=== PATIENT | male | born 1995 | race Caucasian/White ===

== ENCOUNTER 2021-02-18 04:42 | Emergency (ER) | payer BC, MEDICAID ==
[2021-02-18] MEDS ORDERED: Sodium Chloride 0.9% 10 ML Syringe FLUSH PRN (05:14)
--- NOTE | 2021-02-18 05:14 | EDM.PDOC ---
ED HPI GENERAL MEDICAL PROBLEM - General Stated Complaint: STOMACH PAIN Time Seen by Provider: 02/18/21 05:20 Source of Information: Reports: Patient History Limitations: Reports: No Limitations - History of Present Illness INITIAL COMMENTS - FREE TEXT/NARRATIVE: Patient is a 26 YO M who was diagnosed with DM type 2 1.5 months ago who presented to the ED because of abdominal pain, nausea, vomiting which started 2 days ago. The pain is over the epigastric area,LUQ and periumbilical area, intermittent, burning,7/10. . He also c/o polyuria and weakness. There is no fever, chills, cough and cold symptoms. - Related Data Allergies Allergy/AdvReac Type Severity Reaction Status Date / Time No Known Allergies Allergy Verified 02/18/21 06:23 Home Meds: Home Meds Aspirin [Adult Low Dose Aspirin EC] 81 mg PO DAILY 02/18/21 [History] Liraglutide [Victoza 3-Ammon] 18 mg .XX BID 02/18/21 [History] atorvaSTATin [Lipitor] 10 mg PO DAILY 02/18/21 [History] lisinopriL [Lisinopril] 10 mg PO DAILY 02/18/21 [History] Past Medical History - Past Health History Medical/Surgical History: Denies Medical/Surgical History ED ROS GENERAL - Review of Systems Review Of Systems: See Below Constitutional: Reports: Weakness HEENT: Reports: No Symptoms Respiratory: Reports: No Symptoms Cardiovascular: Reports: No Symptoms Endocrine: Reports: No Symptoms GI/Abdominal: Reports: Abdominal Pain, Nausea, Vomiting : Reports: Frequency Musculoskeletal: Reports: No Symptoms Skin: Reports: No Symptoms Neurological: Reports: No Symptoms Psychiatric: Reports: No Symptoms Hematologic/Lymphatic: Reports: No Symptoms Immunologic: Reports: No Symptoms ED EXAM, GI/ABD - Physical Exam Exam: See Below Exam Limited By: No Limitations General Appearance: Alert, No Apparent Distress Ears: Normal External Exam, Normal Canal Nose: Normal Inspection, Normal Mucosa, No Blood Throat/Mouth: Normal Inspection, Normal Lips Head: Atraumatic, Normocephalic Neck: Normal Inspection, Supple, Non-Tender, Full Range of Motion Respiratory/Chest: No Respiratory Distress, Lungs Clear, Normal Breath Sounds, No Accessory Muscle Use, Chest Non-Tender Cardiovascular: Normal Peripheral Pulses, Regular Rate, Rhythm, No Edema, No Gallop, No JVD, No Murmur, No Rub GI/Abdominal Exam: Normal Bowel Sounds, Soft, Other (epigastric tenderness) Back Exam: Normal Inspection, Full Range of Motion Extremities: Normal Inspection, Normal Range of Motion, Non-Tender, No Pedal Edema, Normal Capillary Refill Neurological: Alert, Oriented, CN II-XII Intact, Normal Cognition, Normal Gait Psychiatric: Normal Affect Skin Exam: Warm Course - Vital Signs Text/Narrative:: Labs/EKG/CXR/Abd-pelvis CT result was reviewed and discussed with patient NS 1 L bolus Zofran 4 mg IV x2 Morphine 2 mg IV x1 GI cocktail po x1 Klor con 20 meq, 2 PO x1 Protonix 40 mg po x1 Humalog 20 U SC x1 Case discussed with Dr Castañeda of [facility] Last Recorded V/S: Last Vital Signs Temp 37.0 C 02/18/21 05:18 Pulse 105 H 02/18/21 05:18 Resp 18 02/18/21 05:18 BP 161/105 H 02/18/21 05:18 Pulse Ox 99 02/18/21 05:18 - Orders/Labs/Meds Orders: Active Orders 24 hr Category Date Time Status EKG Documentation Completion [RC] ASDIRECTED Care 02/18/21 05:16 Active Abdomen Pelvis w Cont [CT] Stat Exams 02/18/21 05:24 Taken Chest 1V Frontal [CR] Stat Exams 02/18/21 05:17 Taken BETA-HYDROXYBUTYRATE Stat Lab 02/18/21 05:38 Received Dextrose 50% in Water Med 02/18/21 05:20 Active 50 ml IVPUSH ASDIRECTED PRN Glucagon,Human Recombinant [GlucaGen] Med 02/18/21 05:20 Active 1 mg IM ASDIRECTED PRN Sodium Chloride 0.9% [Normal Saline] 1,000 ml Med 02/18/21 05:30 Active IV ASDIRECTED Sodium Chloride 0.9% [Saline Flush] Med 02/18/21 05:14 Active 10 ml FLUSH ASDIRECTED PRN Saline Lock Insert [OM.PC] Routine Oth 02/18/21 05:14 Ordered EKG 12 Lead [EK] Routine Ther 02/18/21 05:14 Ordered Medication Orders Dextrose/Water (50% Dextrose In Water 50 Ml Syringe) 50 ml IVPUSH ASDIRECTED PRN PRN Reason: Hypoglycemia Glucagon (Glucagon,Human Recombinant 1 Mg Vial) 1 mg IM ASDIRECTED PRN PRN Reason: Hypoglycemia Sodium Chloride (Normal Saline) 1,000 mls @ 999 mls/hr IV ASDIRECTED YESENIA Last Admin: 02/18/21 05:28 Dose: 999 mls/hr Documented by: XAVIER Sodium Chloride (Sodium Chloride 0.9% 10 Ml Syringe) 10 ml FLUSH ASDIRECTED PRN PRN Reason: Keep Vein Open Last Admin: 02/18/21 05:08 Dose: 10 ml Documented by: XAVIER Labs: Laboratory Tests 02/18/21 02/18/21 02/18/21 Range/Units 04:55 05:38 05:38 WBC 7.4 (3.2-10.1) x10-3/uL RBC 5.33 (3.90-5.90) x10(6)uL Hgb 15.6 (12.9-17.7) g/dL Hct 47.0 (38.3-50.1) % MCV 88.1 (80.8-98.7) fL MCH 29.3 (27.0-33.3) pg MCHC 33.3 (28.7-35.3) g/dL RDW 15.0 (12.4-15.0) % Plt Count 136 (117-477) x10(3)uL MPV 10.9 (6.7-11.0) fL Neut % (Auto) 64.1 (40.3-71.8) % Lymph % (Auto) 22.8 (15.8-45.3) % [place] % (Auto) 11.2 (5.5-15.2) % Eos % (Auto) 1.2 (0.1-6.8) % Baso % (Auto) 0.7 (0.3-3.8) % Neut # (Auto) 4.7 (1.7-6.9) x10-3/uL Lymph # (Auto) 1.7 (0.5-4.5) x10-3/uL [place] # (Auto) 0.8 (0.0-1.2) x10-3/uL Eos # (Auto) 0.1 (0.0-0.6) x10-3/uL Baso # (Auto) 0.1 (0.0-0.3) x10-3/uL POC VBG pH (7.32-7.43) pH Units POC VBG pCO2 (41-51) mmHg POC VBG HCO3 (21-29) mmol/L VBG Base Excess (-2-3) mmol/L O2 Delivery Device Sodium 132 L (135-145) mmol/L Potassium 3.4 L (3.5-5.3) mmol/L Chloride 96 L (100-110) mmol/L Carbon Dioxide 10 L* (21-32) mmol/L BUN 8 (7-18) mg/dL Creatinine 0.9 (0.70-1.30) mg/dL Est Cr Clr Drug Dosing 133.63 mL/min Estimated GFR (MDRD) > 60 (>60) BUN/Creatinine Ratio 8.9 L (9-20) Glucose 483 H* (80-116) mg/dL Lactic Acid (0.4-2.0) mmol/L Calcium 8.9 (8.6-10.2) mg/dL Total Bilirubin 0.8 (0.1-1.3) mg/dL AST < 5 L (5-25) IU/L ALT < 6 L (12-36) U/L Alkaline Phosphatase 138 H (56-112) IU/L Troponin I (4.0-60.3) pg/mL Total Protein 7.8 (6.0-8.0) g/dL Albumin 3.6 (3.5-5.2) g/dL Globulin 4.2 g/dL Albumin/Globulin Ratio 0.9 Amylase 13 L (25-115) U/L Lipase (73-393) U/L Urine Color Yellow (YELLOW) Urine Appearance Clear (CLEAR) Urine pH 5.0 (5.0-6.5) Ur Specific [place] 1.015 (1.010-1.025) Urine Protein Trace (NEGATIVE) mg/dL Urine Glucose (UA) >1000 H (NORMAL) mg/dL Urine Ketones 50 H (NEGATIVE) mg/dL Urine Occult Blood Moderate H (NEGATIVE) Urine Nitrite Negative (NEGATIVE) Urine Bilirubin Negative (NEGATIVE) Urine Urobilinogen Normal (NEGATIVE) mg/dL Ur Leukocyte Esterase Negative (NEGATIVE) Urine RBC 0-5 (0-5) Urine WBC 0-5 (0-5) Ur Squamous Epith Cells Occasional (NS,R,O) Urine Bacteria Few H (NS) Urine Mucus Few H (NS) Urine Opiates Screen (NEGATIVE) Ur Oxycodone Screen (NEGATIVE) Ur Propoxyphene Screen (NEGATIVE) Ur Barbituates Screen (NEGATIVE) Ur Tricyclics Screen (NEGATIVE) Ur Phencyclidine Scrn (NEGATIVE) Ur Amphetamine Screen (NEGATIVE) Urine MDMA Screen (NEGATIVE) U Benzodiazepines Scrn (NEGATIVE) U Cocaine Metab Screen (NEGATIVE) U Marijuana (THC) Screen (NEGATIVE) SARS-CoV-2 RNA (ANNA) (NEGATIVE) 02/18/21 02/18/21 02/18/21 Range/Units 05:38 05:38 05:44 WBC (3.2-10.1) x10-3/uL RBC (3.90-5.90) x10(6)uL Hgb (12.9-17.7) g/dL Hct (38.3-50.1) % MCV (80.8-98.7) fL MCH (27.0-33.3) pg MCHC (28.7-35.3) g/dL RDW (12.4-15.0) % Plt Count (117-477) x10(3)uL MPV (6.7-11.0) fL Neut % (Auto) (40.3-71.8) % Lymph % (Auto) (15.8-45.3) % [place] % (Auto) (5.5-15.2) % Eos % (Auto) (0.1-6.8) % Baso % (Auto) (0.3-3.8) % Neut # (Auto) (1.7-6.9) x10-3/uL Lymph # (Auto) (0.5-4.5) x10-3/uL [place] # (Auto) (0.0-1.2) x10-3/uL Eos # (Auto) (0.0-0.6) x10-3/uL Baso # (Auto) (0.0-0.3) x10-3/uL POC VBG pH (7.32-7.43) pH Units POC VBG pCO2 (41-51) mmHg POC VBG HCO3 (21-29) mmol/L VBG Base Excess (-2-3) mmol/L O2 Delivery Device Sodium (135-145) mmol/L Potassium (3.5-5.3) mmol/L Chloride (100-110) mmol/L Carbon Dioxide (21-32) mmol/L BUN (7-18) mg/dL Creatinine (0.70-1.30) mg/dL Est Cr Clr Drug Dosing mL/min Estimated GFR (MDRD) (>60) BUN/Creatinine Ratio (9-20) Glucose (80-116) mg/dL Lactic Acid < 0.3 L (0.4-2.0) mmol/L Calcium (8.6-10.2) mg/dL Total Bilirubin (0.1-1.3) mg/dL AST (5-25) IU/L ALT (12-36) U/L Alkaline Phosphatase (56-112) IU/L Troponin I 31.8 (4.0-60.3) pg/mL Total Protein (6.0-8.0) g/dL Albumin (3.5-5.2) g/dL Globulin g/dL Albumin/Globulin Ratio Amylase (25-115) U/L Lipase 139 (73-393) U/L Urine Color (YELLOW) Urine Appearance (CLEAR) Urine pH (5.0-6.5) Ur Specific [place] (1.010-1.025) Urine Protein (NEGATIVE) mg/dL Urine Glucose (UA) (NORMAL) mg/dL Urine Ketones (NEGATIVE) mg/dL Urine Occult Blood (NEGATIVE) Urine Nitrite (NEGATIVE) Urine Bilirubin (NEGATIVE) Urine Urobilinogen (NEGATIVE) mg/dL Ur Leukocyte Esterase (NEGATIVE) Urine RBC (0-5) Urine WBC (0-5) Ur Squamous Epith Cells (NS,R,O) Urine Bacteria (NS) Urine Mucus (NS) Urine Opiates Screen Negative (NEGATIVE) Ur Oxycodone Screen Negative (NEGATIVE) Ur Propoxyphene Screen Negative (NEGATIVE) Ur Barbituates Screen Negative (NEGATIVE) Ur Tricyclics Screen Negative (NEGATIVE) Ur Phencyclidine Scrn Negative (NEGATIVE) Ur Amphetamine Screen Negative (NEGATIVE) Urine MDMA Screen Negative (NEGATIVE) U Benzodiazepines Scrn Negative (NEGATIVE) U Cocaine Metab Screen Negative (NEGATIVE) U Marijuana (THC) Screen Negative (NEGATIVE) SARS-CoV-2 RNA (ANNA) (NEGATIVE) 02/18/21 02/18/21 Range/Units 05:50 06:22 WBC (3.2-10.1) x10-3/uL RBC (3.90-5.90) x10(6)uL Hgb (12.9-17.7) g/dL Hct (38.3-50.1) % MCV (80.8-98.7) fL MCH (27.0-33.3) pg MCHC (28.7-35.3) g/dL RDW (12.4-15.0) % Plt Count (117-477) x10(3)uL MPV (6.7-11.0) fL Neut % (Auto) (40.3-71.8) % Lymph % (Auto) (15.8-45.3) % [place] % (Auto) (5.5-15.2) % Eos % (Auto) (0.1-6.8) % Baso % (Auto) (0.3-3.8) % Neut # (Auto) (1.7-6.9) x10-3/uL Lymph # (Auto) (0.5-4.5) x10-3/uL [place] # (Auto) (0.0-1.2) x10-3/uL Eos # (Auto) (0.0-0.6) x10-3/uL Baso # (Auto) (0.0-0.3) x10-3/uL POC VBG pH 7.24 L* (7.32-7.43) pH Units POC VBG pCO2 31 L (41-51) mmHg POC VBG HCO3 13 L (21-29) mmol/L VBG Base Excess -15 L (-2-3) mmol/L O2 Delivery Device Room air Sodium (135-145) mmol/L Potassium (3.5-5.3) mmol/L Chloride (100-110) mmol/L Carbon Dioxide (21-32) mmol/L BUN (7-18) mg/dL Creatinine (0.70-1.30) mg/dL Est Cr Clr Drug Dosing mL/min Estimated GFR (MDRD) (>60) BUN/Creatinine Ratio (9-20) Glucose (80-116) mg/dL Lactic Acid (0.4-2.0) mmol/L Calcium (8.6-10.2) mg/dL Total Bilirubin (0.1-1.3) mg/dL AST (5-25) IU/L ALT (12-36) U/L Alkaline Phosphatase (56-112) IU/L Troponin I (4.0-60.3) pg/mL Total Protein (6.0-8.0) g/dL Albumin (3.5-5.2) g/dL Globulin g/dL Albumin/Globulin Ratio Amylase (25-115) U/L Lipase (73-393) U/L Urine Color (YELLOW) Urine Appearance (CLEAR) Urine pH (5.0-6.5) Ur Specific [place] (1.010-1.025) Urine Protein (NEGATIVE) mg/dL Urine Glucose (UA) (NORMAL) mg/dL Urine Ketones (NEGATIVE) mg/dL Urine Occult Blood (NEGATIVE) Urine Nitrite (NEGATIVE) Urine Bilirubin (NEGATIVE) Urine Urobilinogen (NEGATIVE) mg/dL Ur Leukocyte Esterase (NEGATIVE) Urine RBC (0-5) Urine WBC (0-5) Ur Squamous Epith Cells (NS,R,O) Urine Bacteria (NS) Urine Mucus (NS) Urine Opiates Screen (NEGATIVE) Ur Oxycodone Screen (NEGATIVE) Ur Propoxyphene Screen (NEGATIVE) Ur Barbituates Screen (NEGATIVE) Ur Tricyclics Screen (NEGATIVE) Ur Phencyclidine Scrn (NEGATIVE) Ur Amphetamine Screen (NEGATIVE) Urine MDMA Screen (NEGATIVE) U Benzodiazepines Scrn (NEGATIVE) U Cocaine Metab Screen (NEGATIVE) U Marijuana (THC) Screen (NEGATIVE) SARS-CoV-2 RNA (ANNA) Negative (NEGATIVE) Meds: Medications Generic Name Dose Route Start Last Admin Trade Name Freq PRN Reason Stop Dose Admin Dextrose/Water 50 ml 02/18/21 05:20 50% Dextrose In Water 50 Ml Syringe IVPUSH ASDIRECTED PRN Hypoglycemia Glucagon 1 mg 02/18/21 05:20 Glucagon,Human Recombinant 1 Mg Vial IM ASDIRECTED PRN Hypoglycemia Sodium Chloride 1,000 mls @ 999 mls/hr 02/18/21 05:30 02/18/21 05:28 Normal Saline IV 999 mls/hr ASDIRECTED YESENIA Administration Sodium Chloride 10 ml 02/18/21 05:14 02/18/21 05:08 Sodium Chloride 0.9% 10 Ml Syringe FLUSH 10 ml ASDIRECTED PRN Administration Keep Vein Open Discontinued Medications Generic Name Dose Route Start Last Admin Trade Name Freq PRN Reason Stop Dose Admin Al Hydroxide/Mg Hydroxide 15 0 ml 02/18/21 06:09 02/18/21 06:20 ml/ Lidocaine HCl 15 ml PO 02/18/21 06:10 30 ml NOW STA Administration Insulin Human Lispro 20 unit 02/18/21 05:20 02/18/21 05:37 Insulin Lispro 100 Unit/Ml 3 Ml Kwikpen SUBCUT 02/18/21 05:21 20 units NOW STA Administration Iopamidol 100 ml 02/18/21 05:37 02/18/21 06:00 Iopamidol 755 Mg/Ml 100 Ml Bottle IV 02/18/21 05:38 100 ml . DIRECTED ONE Administration Morphine Sulfate 2 mg 02/18/21 05:20 02/18/21 05:38 Morphine 2 Mg/Ml Syringe IVPUSH 02/18/21 05:21 2 mg NOW STA Administration Ondansetron HCl 4 mg 02/18/21 05:20 02/18/21 05:38 Ondansetron 4 Mg/2 Ml Sdv IVPUSH 02/18/21 05:21 4 mg NOW STA Administration Ondansetron HCl 4 mg 02/18/21 06:09 02/18/21 06:20 Ondansetron 4 Mg/2 Ml Sdv IVPUSH 02/18/21 06:10 4 mg NOW STA Administration Pantoprazole Sodium 40 mg 02/18/21 06:10 02/18/21 06:20 Pantoprazole 40 Mg Vial IVPUSH 02/18/21 06:11 40 mg NOW STA Administration Potassium Chloride 40 meq 02/18/21 06:15 02/18/21 06:22 Potassium Chloride 20 Meq Tab.Er PO 02/18/21 06:16 40 meq NOW STA Administration Departure - Departure Time of Disposition: 06:45 Disposition: DC/Tfer to Acute Hospital 02 Condition: Good Clinical Impression: Hyperglycemia, DKA (diabetic ketoacidoses), Hypokalemia, Dehydration - Discharge Information Referrals: Francsico Gaxiola NP [Primary Care Provider] - Sepsis Event Note (ED) - Focused Exam Vital Signs: Vital Signs Temp Pulse Resp BP Pulse Ox 02/18/21 05:18 37.0 C 105 H 18 161/105 H 99 - My Orders Last 24 Hours: My Active Orders 02/18/21 05:14 Sodium Chloride 0.9% [Saline Flush] 10 ml FLUSH ASDIRECTED PRN Saline Lock Insert [OM.PC] Routine EKG 12 Lead [EK] Routine 02/18/21 05:16 EKG Documentation Completion [RC] ASDIRECTED 02/18/21 05:17 Chest 1V Frontal [CR] Stat 02/18/21 05:20 Dextrose 50% in Water 50 ml IVPUSH ASDIRECTED PRN Glucagon,Human Recombinant [GlucaGen] 1 mg IM ASDIRECTED PRN 02/18/21 05:24 Abdomen Pelvis w Cont [CT] Stat 02/18/21 05:30 Sodium Chloride 0.9% [Normal Saline] 1,000 ml IV ASDIRECTED 02/18/21 05:38 BETA-HYDROXYBUTYRATE Stat - Assessment/Plan Last 24 Hours: My Active Orders 02/18/21 05:14 Sodium Chloride 0.9% [Saline Flush] 10 ml FLUSH ASDIRECTED PRN Saline Lock Insert [OM.PC] Routine EKG 12 Lead [EK] Routine 02/18/21 05:16 EKG Documentation Completion [RC] ASDIRECTED 02/18/21 05:17 Chest 1V Frontal [CR] Stat 02/18/21 05:20 Dextrose 50% in Water 50 ml IVPUSH ASDIRECTED PRN Glucagon,Human Recombinant [GlucaGen] 1 mg IM ASDIRECTED PRN 02/18/21 05:24 Abdomen Pelvis w Cont [CT] Stat 02/18/21 05:30 Sodium Chloride 0.9% [Normal Saline] 1,000 ml IV ASDIRECTED 02/18/21 05:38 BETA-HYDROXYBUTYRATE Stat
[2021-02-18] MEDS ORDERED: Insulin Lispro 100 Unit/ML 3 ML KwikPen SUBCUT STA (05:20)
[2021-02-18] MEDS ORDERED: Morphine 2 MG/ML SYRINGE IVPUSH STA (05:20)
[2021-02-18] MEDS ORDERED: 50% Dextrose in Water 50 ML Syringe IVPUSH PRN (05:20)
[2021-02-18] MEDS ORDERED: Ondansetron 4 MG/2 ML SDV IVPUSH STA ×2 (05:20→06:09)
[2021-02-18] MEDS ORDERED: Glucagon,Human Recombinant 1 MG Vial IM PRN (05:20)
[2021-02-18] MEDS: Sodium Chloride 0.9% 1,000 ML IV SCH ×2 (05:28→07:15)
[2021-02-18] MEDS ORDERED: Insulin Lispro 100 Unit/ML 3 ML KwikPen SUBCUT ONE (05:35)
[2021-02-18] MEDS ORDERED: Iopamidol 755 Mg/ML 100 ML Bottle IV ONE (05:37)
[2021-02-18] MEDS ORDERED: Alum Hydroxide/Mag Hydroxide 15 ML, Lidocaine 2% 15 ML PO STA ×2 (06:09)
[2021-02-18] MEDS ORDERED: Pantoprazole 40 MG Vial IVPUSH STA (06:10)
[2021-02-18] MEDS ORDERED: Potassium Chloride 20 MEQ Tab.ER PO STA (06:15)
[2021-02-18 06:31] LABS: BASE EXCESS VENOUS,POC -15 mmol/L (-2-3); HCO3 VENOUS,POC 13 mmol/L (21-29); PCO2 VENOUS,POC 31 mmHg (41-51); PH VENOUS,POC 7.24 pH Units (7.32-7.43)
[2021-02-18 07:19] VITALS: BP 151/90; PULSE 89
--- NOTE | 2021-02-20 12:08 | CR ---
INDICATION: Cough. CHEST ONE VIEW: An AP portable upright view of the chest was obtained 02/18/21 and revealed the heart, mediastinum and bony thorax to be unremarkable. The lung detail is less than ideal showing no definite active infiltrate or effusion. When clinically possible, full inspiration PA and lateral views of the chest may be helpful for further evaluation. There appears to be exogenous obesity. IMPRESSION: No definite acute process. Patient may benefit from full inspiration PA and lateral views of the chest for further evaluation. MTDD
--- NOTE | 2021-02-21 13:33 | PCM.EKG ---
#1 Interpretation EKG Date: 02/18/21 Time: 05:20 Rhythm: NSR [place]: Normal P-Wave: Present QRS: Normal ST-T: Depressed Comparison: NA - No Prior EKG (NSR T wave inversion 111,aVf)
== END 2021-02-18 07:45 ==
LOC: FB.ED 04:42
DX: E86.0 Dehydration (principal); E87.6 Hypokalemia; E11.10 Type 2 diabetes mellitus with ketoacidosis without coma; E11.65 Type 2 diabetes mellitus with hyperglycemia; Z79.82 Long term (current) use of aspirin; Z79.899 Other long term (current) drug therapy; Z20.822 Contact with and (suspected) exposure to COVID-19
CPT/HCPCS: 36415; 71045; 74177; 80053; 80305-QW; 81001; 82010; 82150; 82962; 83605; 83690; 84484; 85025; 93005; 96374; 96375; 96376; 99285; 99285-25; A9270-GY; C9113; J1815; J2270; J2405; J7030; Q9967; U0002

== ENCOUNTER 2021-09-23 23:56 | Emergency (ER) | payer SELFPAY ==
--- NOTE | 2021-09-24 00:15 | EDM.PDOC ---
ED HPI GENERAL MEDICAL PROBLEM - General Chief Complaint: Respiratory Problem Stated Complaint: LAUREANO MONTIEL'S Time Seen by Provider: 09/24/21 00:00 Source of Information: Reports: Patient, Old Records, RN History Limitations: Reports: No Limitations - History of Present Illness INITIAL COMMENTS - FREE TEXT/NARRATIVE: 26 yo male was dx at his work with Laureano this past Sat after onset of sx's on Saturday. He has not been to work or to any doctors since his dx. He has been doing a lot of sleeping lately. Tonight he feels SOB so came to the ER. He has a pHx of DKA and is prescribed Victoza. He stopped the Victoza on his own because he didn't think he needed it anymore. He has not checked his BS lately. Says he's eating a lot differently now in an attempt to control his BS. The SOB he is not experiencing is associated with a dry cough and came on gradually. 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) (none) Lower legs Pain Score (Numeric/FACES): 5 - Related Data Allergies Allergy/AdvReac Type Severity Reaction Status Date / Time No Known Allergies Allergy Verified 09/24/21 00:03 Home Meds: Home Meds NK [No Known Home Meds] 09/24/21 [History] Past Medical History - Past Health History Medical/Surgical History: Denies Medical/Surgical History Cardiovascular History: Reports: High Cholesterol, Hypertension Gastrointestinal History: Reports: GERD Endocrine/Metabolic History: Reports: Diabetes, Type II Social & Family History - Family History Family Medical History: No Pertinent Family History ED ROS GENERAL - Review of Systems Review Of Systems: See Below Constitutional: Reports: Fever, Fatigue HEENT: Reports: No Symptoms Respiratory: Reports: Shortness of Breath, Cough. Denies: Sputum Cardiovascular: Reports: No Symptoms Endocrine: Reports: No Symptoms GI/Abdominal: Reports: No Symptoms : Reports: No Symptoms Musculoskeletal: Reports: No Symptoms Skin: Reports: No Symptoms Neurological: Reports: No Symptoms ED EXAM, GENERAL - Physical Exam Exam: See Below Exam Limited By: No Limitations General Appearance: Alert, WD/WN, No Apparent Distress, Obese Eye Exam: Bilateral Eye: Normal Inspection Ears: Normal External Exam, Normal Canal, Hearing Grossly Normal, Normal TMs Ear Exam: Bilateral Ear: Auricle Normal, Canal Normal Nose: Normal Inspection, No Blood Throat/Mouth: Normal Inspection, Normal Lips, Normal Oropharynx, Normal Voice, No Airway Compromise Head: Atraumatic, Normocephalic Neck: Normal Inspection Respiratory/Chest: No Respiratory Distress, Lungs Clear, Normal Breath Sounds, No Accessory Muscle Use, Other (breath sounds slightly decreased due to obesity, may be crackles present that I am not hearing due to his body habitus) Cardiovascular: Regular Rate, Rhythm, No Edema, Tachycardia GI/Abdominal: Soft, Non-Tender Extremities: Normal Inspection Neurological: Alert, Oriented, CN II-XII Intact, Normal Cognition, No Motor/Sensory Deficits Psychiatric: Normal Affect, Normal Mood Skin Exam: Warm, Dry, Intact, Normal Color, No Rash Course - Vital Signs Last Recorded V/S: Last Vital Signs Temp 38.0 C 09/23/21 23:56 Pulse 114 H 09/23/21 23:56 Resp 24 H 09/23/21 23:56 BP 169/86 H 09/23/21 23:56 Pulse Ox 93 L 09/23/21 23:56 - Orders/Labs/Meds Orders: Active Orders 24 hr Category Date Time Status Glucose [Blood Glucose Check, Bedside] [RC] ONETIME Care 09/24/21 00:08 Active Labs: Laboratory Tests 09/24/21 09/24/21 Range/Units 00:10 00:42 WBC 3.4 (3.2-10.1) x10-3/uL RBC 5.33 (3.90-5.90) x10(6)uL Hgb 14.6 (12.9-17.7) g/dL Hct 44.5 (38.3-50.1) % MCV 83.6 (80.8-98.7) fL MCH 27.5 (27.0-33.3) pg MCHC 32.9 (28.7-35.3) g/dL RDW 13.8 (12.4-15.0) % Plt Count 113 L (117-477) x10(3)uL POC Glucose 117 H (80-116) mg/dL Meds: Medications Discontinued Medications Generic Name Dose Route Start Last Admin Trade Name Felipe PRN Reason Stop Dose Admin Acetaminophen 1,000 mg 09/24/21 00:18 09/24/21 00:30 Acetaminophen 500 Mg Tab PO 09/24/21 00:19 1,000 mg ONETIME ONE Administration Departure - Departure Time of Disposition: 01:32 Disposition: Home, Self-Care 01 Condition: Fair Clinical Impression: COVID-19 - Discharge Information *PRESCRIPTION DRUG MONITORING PROGRAM REVIEWED*: Not Applicable *COPY OF PRESCRIPTION DRUG MONITORING REPORT IN PATIENT DONN: Not Applicable Instructions: Symptoms of COVID-19 - CDC (01/23/2021), COVID-19 Frequently Asked Questions Forms: ED Department Discharge Additional Instructions: Take acetaminophen up to 1000 mg every 6 hrs for fever control. Someone will call you Saturday about a time to return for the BAM(immune globulin therapy). Return if your breathing is a lot worse. Sepsis Event Note (ED) - Focused Exam Vital Signs: Vital Signs Temp Pulse Resp BP Pulse Ox 09/23/21 23:56 38.0 C 114 H 24 H 169/86 H 93 L - My Orders Last 24 Hours: My Active Orders 09/24/21 00:08 Glucose [Blood Glucose Check, Bedside] [RC] ONETIME - Assessment/Plan Last 24 Hours: My Active Orders 09/24/21 00:08 Glucose [Blood Glucose Check, Bedside] [RC] ONETIME
[2021-09-24] MEDS ORDERED: Acetaminophen 500 MG Tab PO ONE (00:18)
[2021-09-24 03:38] VITALS: BP 138/88; PULSE 106
== END 2021-09-24 01:40 | disposition home or self-care (01) ==
LOC: FB.ED 23:56
DX: U07.1 COVID-19 (principal); I10 Essential (primary) hypertension; E11.9 Type 2 diabetes mellitus without complications
CPT/HCPCS: 36415; 82947; 85027; 99283; A9270

== ENCOUNTER 2023-01-11 17:58 | Emergency (ER) | payer MEDICAID, OTHER ==
[2023-01-11] MEDS ORDERED: amLODIPine 10 MG Tab PO STA (18:40)
[2023-01-11 18:45] VITALS: BP 172/62
[2023-01-11 18:51] VITALS: PULSE 81
== END 2023-01-11 18:50 ==
LOC: FB.ED 17:58
DX: T75.4XXA Electrocution, initial encounter (principal); E11.40 Type 2 diabetes mellitus with diabetic neuropathy, unspecified; I10 Essential (primary) hypertension; K21.9 Gastro-esophageal reflux disease without esophagitis; E78.00 Pure hypercholesterolemia, unspecified; Z86.16 Personal history of COVID-19
CPT/HCPCS: 93005; 99283; A9270-GY

== ENCOUNTER 2024-01-16 21:50 | Emergency (ER) | payer MEDICAID, OTHER ==
[2024-01-16 22:07] VITALS: BP 142/86
[2024-01-16] MEDS ORDERED: Ondansetron 4 MG/2 ML SDV IM ONE (22:07)
[2024-01-16] MEDS ORDERED: Ketorolac 30 MG/ML SDV IM ONE (22:07)
[2024-01-16] MEDS: Ondansetron 4 MG/2 ML SDV IVPUSH ONE (22:23)
[2024-01-16] MEDS: Ketorolac 30 MG/ML SDV IVPUSH ONE (22:23)
[2024-01-16] MEDS: Sodium Chloride 0.9% 1,000 ML IV SCH (22:23)
[2024-01-16 22:34] LABS: BASE EXCESS VENOUS,POC 2 mmol/L (-2 - 3+); PCO2 VENOUS,POC 41 mmHg (41-51); PH VENOUS,POC 7.42 pH Units (7.32-7.43)
[2024-01-16 22:43] LABS: BASOPHILS PERCENT AUTO 0.5 % (0.3-3.8); EOSINOPHILS ABSOLUTE AUTO 0.1 x10-3/uL (0.0-0.6); EOSINOPHILS PERCENT AUTO 1.3 % (0.1-6.8); HEMATOCRIT 44.9 % (38.3-50.1); HEMOGLOBIN 15.1 g/dL (12.9-17.7); LYMPHOCYTES PERCENT AUTO 31.8 % (15.8-45.3); MEAN CORPUSCULAR HEMOGLOBIN 30.2 pg (27.0-33.3); MEAN CORPUSCULAR HGB CONC 33.6 g/dL (28.7-35.3); MEAN CORPUSCULAR VOLUME 89.9 fL (80.8-98.7); MEAN PLATELET VOLUME 8.9 fL (6.7-11.0); MONOCYTES ABSOLUTE AUTO 0.7 x10-3/uL (0.0-1.2); MONOCYTES PERCENT AUTO 11.6 % (5.5-15.2); NEUTROPHILS ABSOLUTE AUTO 3.5 x10-3/uL (1.7-6.9); NEUTROPHILS PERCENT AUTO 54.8 % (40.3-71.8); PLATELET COUNT,PLT 181 x10(3)uL (117-477); RED CELL DISTRIBUTION WIDTH 15.1 % (12.4-15.0); WHITE BLOOD CELL COUNT,WBC 6.4 x10-3/uL (3.2-10.1)
[2024-01-16 22:46] LABS: BLOOD UREA NITROGEN,BUN 12 mg/dL (7-18); CALCIUM 8.9 mg/dL (8.6-10.2); CARBON DIOXIDE,CO2 27 mmol/L (21-32); CHLORIDE,CL 103 mmol/L (100-110); EST CRCL DRUG DOSING (CG) 121.79 mL/min; ESTIMATED GFR 106 mL/min (>60); GLUCOSE RANDOM 97 mg/dL (80-116); POTASSIUM,K 3.8 mmol/L (3.5-5.3); SODIUM,NA 140 mmol/L (135-145)
[2024-01-16 23:39] VITALS: PULSE 70
== END 2024-01-16 23:39 | disposition home or self-care (01) ==
LOC: FB.ED 21:50
DX: S06.0X9A Concussion with loss of consciousness of unspecified duration, initial encounter (principal); I10 Essential (primary) hypertension; E78.00 Pure hypercholesterolemia, unspecified; E11.40 Type 2 diabetes mellitus with diabetic neuropathy, unspecified; Z86.16 Personal history of COVID-19; W18.09XA Striking against other object with subsequent fall, initial encounter
CPT/HCPCS: 36415; 70450; 72125; 80048; 80307; 85025; 96361; 96374; 96375; 99284; J1885; J2405; J7030

== ENCOUNTER 2024-02-11 03:55 | Emergency (ER) | payer MEDICAID ==
[2024-02-11 05:03] VITALS: BP 123/70; PULSE 75
== END 2024-02-11 04:50 ==
LOC: FB.ED 03:55
DX: Z02.89 Encounter for other administrative examinations (principal); I10 Essential (primary) hypertension; E78.00 Pure hypercholesterolemia, unspecified; E11.40 Type 2 diabetes mellitus with diabetic neuropathy, unspecified; F17.210 Nicotine dependence, cigarettes, uncomplicated
CPT/HCPCS: 99283

== ENCOUNTER 2024-02-15 03:44 | Emergency (ER) | payer MEDICAID ==
[2024-02-15 03:58] VITALS: BP 153/93; PULSE 83
== END 2024-02-15 04:10 ==
LOC: FB.ED 03:44
DX: F10.920 Alcohol use, unspecified with intoxication, uncomplicated (principal); F69 Unspecified disorder of adult personality and behavior; I10 Essential (primary) hypertension; E11.40 Type 2 diabetes mellitus with diabetic neuropathy, unspecified; F17.210 Nicotine dependence, cigarettes, uncomplicated; Z86.19 Personal history of other infectious and parasitic diseases; Z86.16 Personal history of COVID-19; Y90.9 Presence of alcohol in blood, level not specified
CPT/HCPCS: 99284

== ENCOUNTER 2024-03-26 19:19 | Emergency (ER) | payer MEDICAID ==
[2024-03-26 19:43] VITALS: BP 137/88; PULSE 82
[2024-03-26] MEDS: OLANZapine 10 MG Vial IM ONE (20:03)
[2024-03-26] MEDS: LORazepam 2 MG/ML SDV IM STA (20:04)
[2024-03-26] MEDS: Acetaminophen 500 MG Tab PO ONE (20:09)
[2024-03-26] MEDS: Ibuprofen 800 MG Tab PO ONE (20:09)
[2024-03-26 20:16] LABS: BASOPHILS ABSOLUTE AUTO 0.1 x10-3/uL (0.0-0.3); BASOPHILS PERCENT AUTO 0.4 % (0.3-3.8); EOSINOPHILS PERCENT AUTO 0.1 % (0.1-6.8); HEMATOCRIT 49.8 % (38.3-50.1); HEMOGLOBIN 16.5 g/dL (12.9-17.7); LYMPHOCYTES ABSOLUTE AUTO 1.6 x10-3/uL (0.5-4.5); LYMPHOCYTES PERCENT AUTO 11.7 % (15.8-45.3); MEAN CORPUSCULAR HEMOGLOBIN 30.4 pg (27.0-33.3); MEAN CORPUSCULAR HGB CONC 33.2 g/dL (28.7-35.3); MEAN CORPUSCULAR VOLUME 91.4 fL (80.8-98.7); MEAN PLATELET VOLUME 9.1 fL (6.7-11.0); MONOCYTES ABSOLUTE AUTO 1.2 x10-3/uL (0.0-1.2); MONOCYTES PERCENT AUTO 8.7 % (5.5-15.2); NEUTROPHILS ABSOLUTE AUTO 10.8 x10-3/uL (1.7-6.9); NEUTROPHILS PERCENT AUTO 79.1 % (40.3-71.8); PLATELET COUNT,PLT 199 x10(3)uL (117-477); RED BLOOD CELL COUNT 5.44 x10(6)uL (3.90-5.90); RED CELL DISTRIBUTION WIDTH 14.4 % (12.4-15.0); WHITE BLOOD CELL COUNT,WBC 13.6 x10-3/uL (3.2-10.1)
[2024-03-26 20:22] LABS: A/G RATIO 1.3; ALANINE AMINOTRANSFERASE,ALT 36 U/L (12-36); ALBUMIN 4.8 g/dL (3.5-5.2); ALKALINE PHOSPHATASE 66 IU/L (56-112); ASPARTATE AMNIOTRANSFERASE,AST 32 IU/L (5-25); BILIRUBIN TOTAL 0.5 mg/dL (0.1-1.3); BLOOD UREA NITROGEN,BUN 15 mg/dL (7-18); BUN/CREATININE RATIO 13.6 (9-20); CALCIUM 9.2 mg/dL (8.6-10.2); CARBON DIOXIDE,CO2 25 mmol/L (21-32); CHLORIDE,CL 102 mmol/L (100-110); CREATININE 1.1 mg/dL (0.70-1.30); EST CRCL DRUG DOSING (CG) 103.23 mL/min; ESTIMATED GFR 94 mL/min (>60); PROTEIN TOTAL,TP 8.6 g/dL (6.0-8.0); SALICYLATE 3.2 mg/dL (<2.8); SODIUM,NA 142 mmol/L (135-145)
[2024-03-26 20:25] LABS: ACETAMINOPHEN < 2 ug/mL (<2)
[2024-03-26 20:29] LABS: TSH ULTRASENSITIVE 2.2 IU/mL (0.36-3.74)
[2024-03-26 20:33] LABS: GLUCOSE RANDOM 98 mg/dL (80-116)
[2024-03-26 20:35] LABS: ETHANOL BLOOD MEDICAL 0.19 % (<0.03)
[2024-03-27 04:32] LABS: BILIRUBIN,URINE NEGATIVE (NEGATIVE); GLUCOSE,URINE NORMAL (NORMAL); KETONES,URINE NEGATIVE (NEGATIVE); LEUKOCYTE ESTERASE,URINE NEGATIVE (NEGATIVE); NITRITE,URINE NEGATIVE (NEGATIVE); OCCULT BLOOD,URINE NEGATIVE (NEGATIVE); PROTEIN,URINE NEGATIVE (NEGATIVE); UROBILINOGEN,URINE NORMAL (NEGATIVE)
[2024-03-27 04:40] LABS: AMPHETAMINES SCREEN, URINE NEGATIVE (NEGATIVE); BARBITURATE SCREEN,URINE NEGATIVE (NEGATIVE); BENZODIAZEPINES SCREEN,URINE POSITIVE (NEGATIVE); METHADONE SCREEN, URINE NEGATIVE (NEGATIVE); METHAMPHETAMINE SCREEN, URINE NEGATIVE (NEGATIVE); OXYCODONE SCREEN,URINE NEGATIVE (NEGATIVE); THC SCREEN,URINE POSITIVE (NEGATIVE)
[2024-03-27 04:41] LABS: BUPRENORPHINE SCREEN,URINE NEGATIVE (NEGATIVE)
[2024-03-27 04:42] LABS: APPEARANCE,URINE CLEAR (CLEAR); BACTERIA,URINE FEW (NS); COLOR,URINE YELLOW (YELLOW); MUCUS,URINE MODERATE (NS); RBC,URINE 0-5 (0-5); SQUAMOUS EPITHELIAL CELLS,UR FEW (NS,R,O); WBC,URINE 0-5 (0-5)
[2024-03-28 18:56] LABS: THYROXINE FREE 1.2 ng/dL (0.9-1.7)
== END 2024-03-27 08:56 ==
LOC: FB.ED 19:19
DX: F25.9 Schizoaffective disorder, unspecified (principal); F43.10 Post-traumatic stress disorder, unspecified; F42.9 Obsessive-compulsive disorder, unspecified; F17.210 Nicotine dependence, cigarettes, uncomplicated; E11.9 Type 2 diabetes mellitus without complications; I10 Essential (primary) hypertension; E78.00 Pure hypercholesterolemia, unspecified; K21.9 Gastro-esophageal reflux disease without esophagitis; E66.9 Obesity, unspecified; Z86.16 Personal history of COVID-19; Z79.899 Other long term (current) drug therapy; Z68.41 Body mass index [BMI] 40.0-44.9, adult
CPT/HCPCS: 36415; 80053; 80143; 80179; 80307; 81001; 84439; 84443; 85025; 96372; 99285; A9270-GY; J2060; J2405